=== PATIENT | female | born 1985 | race Caucasian/White ===

== ENCOUNTER 2016-10-03 17:50 | Emergency (ER) | payer MEDICAID ==
[~2016-10-03] VITALS: Ht 165.1 cm; Wt 168.2 kg
[~2016-10-03 17:50] MED LIST: AMOXICILLIN 50500 MG PO; CARAFATE 1GM1 G PO; CEPHALEXIN500 M1 PO; CETIRIZINE; CIPRO 500MG TA500 MG PO; FLOVENT 220MCG7.9 GM IH; LORTAB 5/500 501 TAB PO; MACROBID 1100 MG/CAP PO; NO HOME MEDICATIONS; PEPCID 20MG TAB20 MG PO; PREDNISONE10 MG PO; PREDNISONE20 MG PO; PRILOSEC 20MG20 MG PO; PROVENTIL0.09 MG/A1 IH; SYNTHROID0.05 MG/TA PO; SYNTHROID0.1 MG/TAB PO; SYNTHROID0.125 MG/T PO; VENTOLIN0.09 MG IH
[2016-10-03 17:54] VITALS: TEMP 98.5
[2016-10-03] MEDS ORDERED: SYNTHROID 0.10.15 MG PO (17:57)
[2016-10-03 18:45] LABS: BASO # 0.1 (0.0-0.2); BASO % 0.9 % (0.0-2.0); EOS # 0.3 (0.0-0.7); EOS % 2.5 % (0-4.0); GRAN # 6.2 (1.4-6.5); GRAN % 56.3 % (42.2-75.2); HEMATOCRIT 38.8 % (37.0-47.0); HEMOGLOBIN 12.8 g/dl (12.5-16.0); LYMPH # 3.6 (1.2-3.4); LYMPH % 32.8 % (20.0-51.0); MEAN CELL VOLUME 86 fl (80.0-100.0); MEAN CORPUSCULAR HEMOGLOBIN 29 pg (27.0-31.0); MEAN CORPUSCULAR HGB CONC 33 g/dl (33.0-37.0); MEAN PLATELET VOLUME 9.8 fl (7.4-10.4); MONO # 0.8 (0.1-0.6); MONO % 7.2 % (1.7-9.3); PLATELET COUNT 378 K/mm3 (130-400); RED BLOOD COUNT 4.49 M/mm3 (4.10-5.30); WHITE BLOOD COUNT 10.9 K/mm3 (4.8-10.8)
[2016-10-03 18:55] LABS: LIPASE 62 U/L (23-300)
[2016-10-03 19:07] LABS: B-TYPE NATRIURETIC PEPTIDE 45 pg/mL (0-125)
[2016-10-03 19:08] LABS: TROPONIN-I < 0.012 ng/mL (0.000-0.034)
[2016-10-03 19:18] LABS: PH 5 (5-8); URINE APPEARANCE Hazy; URINE BACTERIA None Seen /hpf; URINE BILIRUBIN Negative (NEGATIVE); URINE BLOOD Negative (NEGATIVE); URINE COLOR Yellow; URINE GLUCOSE Negative (NEGATIVE); URINE KETONE Negative (NEGATIVE); URINE RBC 0-2 /hpf; URINE UROBILINOGEN Negative (NEGATIVE); URINE WBC 0-2 /hpf
[2016-10-03 19:38] LABS: ADJUSTED CALCIUM 9.5 mg/dL (8.4-10.2); ALBUMIN 3.8 gm/dL (3.5-5.0); BILIRUBIN,TOTAL 0.5 mg/dL (0.0-1.0); CALCIUM 9.3 mg/dL (8.4-10.2); CREATININE, serum 0.83 mg/dL (0.52-1.25); POTASSIUM 3.9 mmol/L (3.4-5.0); TOTAL PROTEIN 7.5 gm/dL (6.4-8.2)
[2016-10-03] MEDS ORDERED: FLEXERIL 1010 MG/TAB PO (20:34)
[2016-10-03 20:50] VITALS: BP 137/98; PULSE 80
== END 2016-10-03 20:50 | disposition home or self-care (01) ==
LOC: COL.ER 17:50
PROVIDERS: Emergency Medicine
DX: R10.32 Left lower quadrant pain (principal); M25.552 Pain in left hip; R00.2 Palpitations; V48.5XXA Car driver injured in noncollision transport accident in traffic accident, initial encounter; Y92.410 Unspecified street and highway as the place of occurrence of the external cause
CPT/HCPCS: J7030

== ENCOUNTER → 2016-10-07 | Outpatient (CLI) | payer MEDICAID ==
[~2016-10-07] MED LIST changes: +FLEXERIL 1010 MG/TAB PO; +SYNTHROID 0.10.15 MG PO
== END ==
LOC: COL.CARD 12:21
DX: R07.89 Other chest pain (principal)

== ENCOUNTER 2019-11-22 07:10 | Emergency (ER) | payer SELFPAY ==
[~2019-11-22] VITALS: Ht 167.6 cm; Wt 172.7 kg
[2019-11-22 07:14] VITALS: TEMP 97.2
[2019-11-22 07:54] LABS: BASO # 0.1 (0.0-0.2); BASO % 0.7 % (0.0-2.0); EOS # 0.2 (0.0-0.7); EOS % 1.5 % (0-4.0); GRAN # 7.7 (1.4-6.5); GRAN % 66.1 % (42.2-75.2); HEMATOCRIT 42.6 % (37.0-47.0); HEMOGLOBIN 13.6 g/dl (12.5-16.0); LYMPH # 2.9 (1.2-3.4); LYMPH % 24.7 % (20.0-51.0); MEAN CELL VOLUME 89 fl (80.0-100.0); MEAN CORPUSCULAR HEMOGLOBIN 28 pg (27.0-31.0); MEAN CORPUSCULAR HGB CONC 32 g/dl (33.0-37.0); MEAN PLATELET VOLUME 9.8 fl (7.4-10.4); MONO # 0.8 (0.1-0.6); MONO % 6.7 % (1.7-9.3); PLATELET COUNT 376 K/mm3 (130-400)
[2019-11-22] MEDS ORDERED: TOPROL XL 25MG25 MG PO ×2 (08:03)
[2019-11-22] MEDS ORDERED: PRINZIDE 12.5 M1 TAB PO ×4 (08:03→15:01)
[2019-11-22 08:04] LABS: ALANINE AMINOTRANSFERASE 18 U/L (4-34); ALBUMIN 4.1 gm/dL (3.5-5.0); ALKALINE PHOSPHATASE 73 U/L (50-136); ANION GAP 7 mmol/L (7-16); AST,SGOT 20 U/L (15-37); BILIRUBIN,TOTAL 0.4 mg/dL (0.0-1.0); BLOOD UREA NITROGEN 20 mg/dL (7-17); CALCIUM 9.2 mg/dL (8.4-10.2); CARBON DIOXIDE 28 mmol/L (22-30); CHLORIDE 103 mmol/L (98-107); GLUCOSE 148 mg/dL (74-106); POTASSIUM 4.2 mmol/L (3.4-5.0); SODIUM 138 mmol/L (137-145); TOTAL PROTEIN 7.7 gm/dL (6.4-8.2)
[2019-11-22 08:24] LABS: TROPONIN-I < 0.012 ng/mL (0.000-0.035)
[2019-11-22] MEDS ORDERED: SYNTHROID 0.0.025 MG PO (08:48)
[2019-11-22 09:11] VITALS: BP 129/87; PULSE 96
== END 2019-11-22 09:11 | disposition home or self-care (01) ==
LOC: COL.ER 07:10
PROVIDERS: Emergency Medicine
DX: I10 Essential (primary) hypertension (principal); R00.0 Tachycardia, unspecified; E03.9 Hypothyroidism, unspecified

== ENCOUNTER 2021-10-23 21:52 | Emergency (ER) | payer SELFPAY ==
[~2021-10-23] VITALS: Ht 157.5 cm; Wt 172.7 kg
[~2021-10-23 21:52] MED LIST changes: +NORCO 325 MG-51 TAB PO; +PRINZIDE 12.5 M1 TAB PO; +SYNTHROID 0.0.025 MG PO; +TOPROL XL 25MG25 MG PO
[2021-10-23] MEDS ORDERED: PREDNISONE20 MG PO (22:24)
[2021-10-23 23:04] VITALS: BP 122/68; PULSE 64; TEMP 98.1
== END 2021-10-23 23:10 | disposition home or self-care (01) ==
LOC: COL.ER 21:52
DX: J45.901 Unspecified asthma with (acute) exacerbation (principal)
CPT/HCPCS: J7512